=== PATIENT | female | born 1990 | race Caucasian/White ===

== ENCOUNTER 2017-10-19 01:52 | Emergency (ER) | payer MEDICAID ==
[2017-10-19 02:35] LABS: BASOPHILS 0.3 % (0-2); EOSINOPHILS 0.6 % (0-7); HEMATOCRIT 27.9 % (36.0-48.0); HEMOGLOBIN 9.3 g/dL (12-16); IMMATURE GRANULOCYTES 1.9 % (0-5); LYMPHOCYTES 26.5 % (15-50); MCH 30.1 pg (26.0-34.0); MCHC 33.3 g/dL (31.0-37.0); MCV 90.3 fL (80.0-100.0); MEAN PLATELET VOLUME 8.6 fL (7.4-10.4); NEUTROPHILS 61.7 % (40-80); PLATELET COUNT 260 10x3/uL (130-400); RBC 3.09 10x6/uL (4.00-5.40); RDW 14.1 % (11.5-14.5); WBC 10.2 10x3/uL (4.8-10.8)
== END 2017-10-19 02:53 | disposition home or self-care (01) ==
LOC: D.ER 01:52
PROVIDERS: Emergency Medicine
DX: Z86.59 Personal history of other mental and behavioral disorders (principal); F17.200 Nicotine dependence, unspecified, uncomplicated

== ENCOUNTER → 2017-11-15 09:30 | Outpatient (CLI) | payer MEDICAID ==
[2017-11-15 10:34] LABS: UDS - AMPHET NEGATIVE QUAL (NEGATIVE); UDS - BARB NEGATIVE QUAL (NEGATIVE); UDS - BENZO NEGATIVE QUAL (NEGATIVE); UDS - COCAINE NEGATIVE QUAL (NEGATIVE); UDS - OPIATE NEGATIVE QUAL (NEGATIVE); UDS - PCP NEGATIVE QUAL (NEGATIVE); UDS - THC POSITIVE QUAL (NEGATIVE)
[2017-11-15 10:42] LABS: APPEARANCE CLOUDY (CLEAR); BILIRUBIN NEGATIVE (NEGATIVE); COLOR YELLOW (YELLOW); GLUCOSE NEGATIVE (NEGATIVE); KETONE NEGATIVE (NEGATIVE); NITRITE NEGATIVE (NEGATIVE); PROTEIN 1+ mg/dL (NEGATIVE); SPECIFIC GRAVITY 1.005 (1.005-1.020); UROBILINOGEN NORMAL (NORMAL); WHITE CELLS - URINE 0-5 /hpf (0-5)
[2017-11-15 10:43] LABS: BACTERIA MODERATE /hpf (NONE SEEN); MUCUS <1+ /lpf (NONE SEEN)
== END | disposition home or self-care (01) ==
LOC: D.LDO 09:30
PROVIDERS: Obstetrics & Gynecology
DX: O21.9 Vomiting of pregnancy, unspecified (principal); Z3A.00 Weeks of gestation of pregnancy not specified

== ENCOUNTER 2018-01-29 11:08 | Inpatient (IN) | payer MEDICAID ==
[~2018-01-29] VITALS: Ht 162.6 cm; Wt 70.3 kg
[2018-01-29 11:59] LABS: UDS - AMPHET NEGATIVE QUAL (NEGATIVE); UDS - BARB NEGATIVE QUAL (NEGATIVE); UDS - BENZO NEGATIVE QUAL (NEGATIVE); UDS - COCAINE NEGATIVE QUAL (NEGATIVE); UDS - OPIATE NEGATIVE QUAL (NEGATIVE); UDS - PCP NEGATIVE QUAL (NEGATIVE); UDS - THC NEGATIVE QUAL (NEGATIVE)
[2018-01-29 12:16] LABS: APPEARANCE SL CLDY (CLEAR); BILIRUBIN NEGATIVE (NEGATIVE); COLOR DK YELLOW (YELLOW); GLUCOSE NEGATIVE (NEGATIVE); KETONE NEGATIVE (NEGATIVE); NITRITE NEGATIVE (NEGATIVE); PROTEIN 1+ mg/dL (NEGATIVE)
[2018-01-29 12:19] LABS: WHITE CELLS - URINE 25-50 /hpf (0-5)
[2018-01-29 12:20] LABS: BACTERIA MODERATE /hpf (NONE SEEN); EPITHELIAL CELLS 0-5 /hpf (0-5); MUCUS <1+ /lpf (NONE SEEN)
[2018-01-29 14:01] LABS: HEMATOCRIT 22.8 % (36.0-48.0); MCH 25.7 pg (26.0-34.0); MCV 80.3 fL (80.0-100.0); MEAN PLATELET VOLUME 10.5 fL (7.4-10.4); RBC 2.84 10x6/uL (4.00-5.40); RDW 15.3 % (11.5-14.5); WBC 13.8 10x3/uL (4.8-10.8)
[2018-01-29 14:30] LABS: HEMOGLOBIN 7.3 g/dL (12-16)
[2018-01-29 16:52] VITALS: BP 111/84; Ht 162.6 cm; Wt 70.3 kg
[2018-01-29 19:30] VITALS: BP 161/91
[2018-01-29 21:35] LABS: BASOPHILS 0.1 % (0-2); EOSINOPHILS 0.1 % (0-7); HEMATOCRIT 27.1 % (36.0-48.0); HEMOGLOBIN 8.7 g/dL (12-16); IMMATURE GRANULOCYTES 0.6 % (0-5); LYMPHOCYTES 6.9 % (15-50); MCH 25.7 pg (26.0-34.0); MCHC 32.1 g/dL (31.0-37.0); MCV 80.2 fL (80.0-100.0); MEAN PLATELET VOLUME 10.6 fL (7.4-10.4); NEUTROPHILS 83.3 % (40-80); PLATELET COUNT 149 10x3/uL (130-400); RBC 3.38 10x6/uL (4.00-5.40); RDW 15.2 % (11.5-14.5); WBC 18.5 10x3/uL (4.8-10.8)
[2018-01-29 21:48] VITALS: BP 148/78
[2018-01-29 22:15] VITALS: BP 132/76
[2018-01-30 06:51] LABS: BASOPHILS 0.1 % (0-2); EOSINOPHILS 0 % (0-7); HEMATOCRIT 24.8 % (36.0-48.0); IMMATURE GRANULOCYTES 0.6 % (0-5); LYMPHOCYTES 12.3 % (15-50); MCH 25.6 pg (26.0-34.0); MCHC 32.3 g/dL (31.0-37.0); MCV 79.5 fL (80.0-100.0); MEAN PLATELET VOLUME 10.9 fL (7.4-10.4); MONOCYTES 7.7 % (2-11); NEUTROPHILS 79.3 % (40-80); PLATELET COUNT 139 10x3/uL (130-400); RBC 3.12 10x6/uL (4.00-5.40); RDW 15.4 % (11.5-14.5); WBC 18.5 10x3/uL (4.8-10.8)
[2018-01-30 07:15] VITALS: BP 140/88
[2018-01-30 07:30] LABS: RAPID PLASMA REAGIN Non Reactive (Non Reactive)
[2018-01-30 20:00] VITALS: BP 129/89
[2018-01-31 07:35] VITALS: BP 129/82
[2018-01-31 13:20] VITALS: BP 121/70
== END 2018-01-31 18:45 | disposition home or self-care (01) | DRG 774 ==
LOC: D.LDO 11:08 → D.LD 12:09 → D.WS 12:09
PROVIDERS: Obstetrics & Gynecology
PROC: 10907ZC Drainage of Amniotic Fluid, Therapeutic from Products of Conception, Via Natural or Artificial Opening (ICD-10-PCS; principal; 2018-01-29)
PROC: 10E0XZZ Delivery of Products of Conception, External Approach (ICD-10-PCS; 2018-01-29)
DX: O66.0 Obstructed labor due to shoulder dystocia (principal); O72.1 Other immediate postpartum hemorrhage; Z3A.39 39 weeks gestation of pregnancy; Z37.0 Single live birth; O77.0 Labor and delivery complicated by meconium in amniotic fluid; O99.02 Anemia complicating childbirth

== ENCOUNTER 2019-09-07 01:19 | Inpatient (IN) | payer OTHER ==
[~2019-09-07] VITALS: Ht 162.6 cm; Wt 145.6 kg
--- NOTE | ~2019-09-07 | OP ---
PATIENT NAME: NINA SCHMITZ MEDICAL RECORD: [id number] :88 LOCATION:[id number] ADMISSION DATE:09/07/19 SURGEON: ALINA STRICKLAND DO DATE OF OPERATION: 09/07/2019 PREOPERATIVE DIAGNOSIS: Placenta previa, suspected placental abruption. POSTOPERATIVE DIAGNOSIS: Placenta previa, suspected placental abruption, 90% placental abruption. PRIMARY SURGEON: Alina Strickland DO ANESTHESIA: General ET tube. PROCEDURE: Primary low transverse section via Pfannenstiel incision. FINDINGS: Female , weight 5 pounds 5 ounces, Apgars 2, 7 and 8, 90% placental abruption noted. Uterus white. Normal appearing fallopian tubes and ovaries. SPECIMENS: Placenta and cord. ESTIMATED BLOOD LOSS: 800 cc. IV FLUIDS: 5 units PRBCs, 1 unit FFP, 2 liters IV fluids. URINE OUTPUT: 550 cc clear urine. COMPLICATIONS: The patient with severe symptomatic anemia given multiple units of PRBCs and 1 unit of FFP in the OR with stabilization of vital signs. Uterine atony, 20 extra units of Pitocin added to the IV fluids and 0.25 mg Hemabate given IM with improvement in uterine tone. PROCEDURE IN DETAIL: The risks, benefits, alternatives, and indications of the procedure were discussed with the patient. She voiced understanding of the procedure and signed the consent. The patient understood this was an emergent procedure and needed to occur as soon as possible. She was taken to OR where general anesthesia was administered and found to be adequate. Due to need for emergent delivery, she was placed in the dorsal supine position with a leftward tilt. She was prepped and draped in the normal sterile fashion. A Pfannenstiel skin incision was made with the scalpel and carried down to the underlying layer of the fascia. The fascia was incised in the midline and extended laterally. The fascia and rectus muscle was using blunt dissection. The peritoneum was identified and noted to be free of adherent bowel and entered bluntly. The peritoneum was further with gentle traction. The bladder blade was inserted. The uterus was incised in a transverse fashion in lower uterine segment. The incision was extended with cephalad caudad traction. The infant was delivered without difficulty. Mouth and nose were suctioned. Cord was clamped and cut and the infant was handed off to awaiting pediatricians. The placenta was manually removed. A 90% placental abruption was noted at the time. The uterus was exteriorized and moist lap was used to assure complete removal of placenta membranes. The hysterotomy was closed with 0 Vicryl in a running locked fashion with good hemostasis noted. There was uterine atony and extra Pitocin was added to the IV fluids as well as 0.25 mg of Hemabate given IM with good return of uterine tone. The posterior cul-de-sac OPERATIVE REPORT [id number] NINA SCHMITZ was irrigated with warm sterile water. Uterus was returned back to the abdominal cavity. A moist laparotomy sponge was used to assure complete removal of blood clots and fluid from the abdominal cavity. The hysterotomy was reinspected and noted to be hemostatic. Rectus muscle was closed with 2-0 Monocryl in a running fashion with good hemostasis. The fascial incision was closed with 0 Vicryl in a running fashion with good hemostasis. The skin was closed in a subcuticular fashion with 3-0 Monocryl, Steri-Strips and a pressure dressing. All needle, lap, sponge, and instrument counts were correct times 2. The patient tolerated the procedure well and she was stable at the time that we brought her to the recovery room. TRANSINT:[id number] Voice Confirmation ID: [id number] DOCUMENT ID: [id number] ALINA STRICKLAND DO CC: [id number] DICTATION DATE: 09/13/19 [address] MAIL DRIVER: 09/13/19 1156 DIS IN 09/11/19 [facility] [address] [id number]
[2019-09-07 01:31] LABS: HEMATOCRIT 13.9 % (36.0-48.0); HEMOGLOBIN 4.2 g/dL (12-16); MCH 25.8 pg (26.0-34.0); MCHC 30.2 g/dL (31.0-37.0); MCV 85.3 fL (80.0-100.0); MEAN PLATELET VOLUME 9.1 fL (7.4-10.4); RBC 1.63 10x6/uL (4.00-5.40); RDW 15.5 % (11.5-14.5); WBC 12.2 10x3/uL (4.8-10.8)
--- NOTE | 2019-09-07 02:12 | NUR ---
BABY @ 0146 GIRL PLACENTA @ 0145
[2019-09-07 02:49] LABS: UDS - AMPHET POSITIVE QUAL (NEGATIVE); UDS - BARB NEGATIVE QUAL (NEGATIVE); UDS - BENZO NEGATIVE QUAL (NEGATIVE); UDS - COCAINE NEGATIVE QUAL (NEGATIVE); UDS - OPIATE NEGATIVE QUAL (NEGATIVE); UDS - PCP NEGATIVE QUAL (NEGATIVE); UDS - THC NEGATIVE QUAL (NEGATIVE)
[2019-09-07 04:09] VITALS: BP 143/103
--- NOTE | 2019-09-07 04:10 | NUR ---
PT REC'D FROM SURGERY AT THIS TIME. FUNDUS FIRM AND U/1 WITH MODERATE LOCHIA NOTED. PERICARE PROVIDED AT THIS TIME. 500 ML OF CLEAR YELLOW URINE EMPTIED FROM GAUTAM CATH AT THIS TIME. NO ACUTE DISTRESS NOTED AT THIS TIME. SEE FLOWSHEET FOR ADDITIONAL CHARTING. Harman SAINI RN
--- NOTE | 2019-09-07 04:27 | NUR ---
0311 FUDAL HEIGHT 2 FINGERS BELOW UMBILICUS, MIDLINE, AND FIRM
--- NOTE | 2019-09-07 04:28 | NUR ---
0400 HOUSTON PAD MODERATE SEROSANGENOUS DRAINAGE. REPLACE WITH NEW PERIPAD. FUNDAL HEIGHT 1 FINGER BELOW UMBILICUS, MIDLINE AND FIRM
[2019-09-07 04:45] LABS: BASOPHILS 0.2 % (0-2); EOSINOPHILS 0 % (0-7); IMMATURE GRANULOCYTES 3.7 % (0-5); LYMPHOCYTES 15.9 % (15-50); MCH 28.8 pg (26.0-34.0); MCHC 34.2 g/dL (31.0-37.0); MCV 84.4 fL (80.0-100.0); MEAN PLATELET VOLUME 9.5 fL (7.4-10.4); MONOCYTES 2.1 % (2-11); NEUTROPHILS 78.1 % (40-80); RDW 13.9 % (11.5-14.5)
[2019-09-07 04:47] LABS: HEMOGLOBIN 9.4 g/dL (12-16); RBC 3.26 10x6/uL (4.00-5.40); WBC 8.9 10x3/uL (4.8-10.8)
[2019-09-07 04:48] LABS: HEMATOCRIT 27.5 % (36.0-48.0); PLATELET COUNT 66 10x3/uL (130-400)
--- NOTE | 2019-09-07 04:48 | NUR ---
DR STRICKLAND NOTIFIED REGARDING LABS
[2019-09-07 04:49] LABS: PLATELET ESTIMATE DECREASED
[2019-09-07 04:52] LABS: CALC OSMOLALITY 292 mosm/kg (275-300); CALCIUM 8.4 mg/dL (8.5-10.1); CARBON DIOXIDE 29.9 mmol/L (21.0-32.0); CHLORIDE - SERUM 110 mmol/L (98-107); CREATININE - SERUM 0.8 mg/dL (0.6-1.3); GLUCOSE 150 mg/dL (74-106); SODIUM 146 mmol/L (136-145); UREA NITROGEN 11 mg/dL (7-18); eGFR NON AFRICAN AMERICAN 89 mL/min (90-120)
[2019-09-07 04:53] LABS: APTT 23.1 SECONDS (22.8-39.4); INR 1.05 (0.85-1.17); PROTIME 13.7 SECONDS (11.6-15.0)
[2019-09-07 05:23] LABS: PLATELET MORPHOLOGY PLT CLUMPS PRESENT
[2019-09-07 05:53] VITALS: BP 143/103
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
--- NOTE | 2019-09-07 06:19 | NUR ---
LATE ENTRY: BP CUFF NOTED TO BE OFF, WHEN GETTING READY TO APPLY BP CUFF, TURNIQUET FROM LAB DRAW NOTED TO BE ON, TURNIQUET REMOVED, INFORMED JAYNE SAINI RN
--- NOTE | 2019-09-07 07:30 | NUR ---
AM ROUNDS COMPLETED, VITAL SIGNS TAKEN AND WNL. REVIEWED PLAN OF CARE, PT STATES UNDERSTANDING, WILL REINFORCE PRN. CALL LIGHT IN EASY REACH, CONTINUE TO MONITOR.
--- NOTE | 2019-09-07 08:35 | NUR ---
PT COMPLIANT WITH ASSESSMENT, TURNS SELF SIDE TO SIDE IN BED, ADDITIONAL PILLOW PROVIDED FOR PT COMFORT AND PROPPED TO PT BACK, TOLERATING PO INTAKE, LUNGS CTAB, HEART RRR, ABD SOFT AND MILDLY TENDER WITH FUNDAL CHECK, FUNDUS FIRM AT U/1 AND MIDLINE. BOWEL SOUNDS PRESENT BUT HYPOACTIVE TO ALL QUADRANTS, PAYAN FREELY, CATHETER IN PLACE WITH CONCENTRATED YELLOW URINE IN BAG TO GRAVITY DRAINAGE, NEG VI'S SIGN B LE. SCDS IN PLACE AND FUNCTIONING. CONVERTED LEFT A/C PIV TO SALINE LOCK AND MOVED PIV TO LEFT HAND TO MINIMIZE IVAC ALARMS WITH PT BENDING OF ARM. PT TOLERATES WELL. BREAKFAST TRAY ON BST ADJACENT TO BED WITHIN PT REACH, CALL LIGHT IN EASY REACH OF PT. WILL MONITOR.
[2019-09-07 09:07] LABS: BASOPHILS 0.1 % (0-2); EOSINOPHILS 0 % (0-7); HEMATOCRIT 26.8 % (36.0-48.0); HEMOGLOBIN 9.3 g/dL (12-16); IMMATURE GRANULOCYTES 0.6 % (0-5); LYMPHOCYTES 11.5 % (15-50); MCH 29.1 pg (26.0-34.0); MCHC 34.7 g/dL (31.0-37.0); MCV 83.8 fL (80.0-100.0); MEAN PLATELET VOLUME 9.4 fL (7.4-10.4); MONOCYTES 8.9 % (2-11); NEUTROPHILS 78.9 % (40-80); RDW 13.9 % (11.5-14.5)
[2019-09-07 09:09] LABS: PLATELET COUNT 120 10x3/uL (130-400)
[2019-09-07 09:15] LABS: CALC OSMOLALITY 284 mosm/kg (275-300); CALCIUM 8.4 mg/dL (8.5-10.1); CHLORIDE - SERUM 106 mmol/L (98-107); CREATININE - SERUM 0.9 mg/dL (0.6-1.3); GLUCOSE 160 mg/dL (74-106); POTASSIUM - SERUM 3.8 mmol/L (3.5-5.1); SODIUM 142 mmol/L (136-145); UREA NITROGEN 10 mg/dL (7-18); eGFR NON AFRICAN AMERICAN 77 mL/min (90-120)
[2019-09-07 09:17] LABS: INR 0.95 (0.85-1.17); PROTIME 12.7 SECONDS (11.6-15.0)
--- NOTE | 2019-09-07 09:21 | NUR ---
spoke with dr esteves via telephone and reviewed am assessment per this rn and most recent cbc results, states to dc all q4 hour labs including bmp, cbc, fibrinogen. cbc in am. notify of any changes in condition, states will see pt around noon today.
--- NOTE | 2019-09-07 09:25 | NUR ---
provided pt two more cups of ice water per her request. states "i'm so thirsty," explained rationale behind that, harrison cath with approximately 400ml urine noted in collection bag set to gravity. will monitor.
[2019-09-07 10:46] VITALS: BP 106/64
--- NOTE | 2019-09-07 10:49 | NUR ---
vss, afebrile, resp even and unlabored, some mild nausea with activity, changing positions for linen change and pericare, now resolved. room temp adjusted per pt request. cup of ice water provided. will monitor.
--- NOTE | 2019-09-07 11:30 | NUR ---
ON ROUNDS NOTED NO URINE OUTPUT NOTED SINCE EMPTIED, NOTIFIED DR STRICKLAND WHO IS AT NURSE'S STATION, VERBAL ORDER RECEIVED AND RELAYED TO Ifeoma SHORT RN WHO STATES SHE WILL COMPLETE ORDERS AND DO NAIL GALVANIZER.
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
--- NOTE | 2019-09-07 11:56 | NUR ---
250 ML LR BOLUS COMPLETED. RATE DECREASED TO 125 MLS/HR.
--- NOTE | 2019-09-07 11:56 | NUR ---
C/O ABD AND INCISIONAL DISCOMFORT. 4 MG IVP MORPHINE GIVEN AND 4 MG IVP ZOFRAN GIVEN PER ORDER AND PT REQUEST. DENIES ADDITIONAL NEEDS. SIGNIFICANT OTHER REMAINS AT BEDSIDE, SUPPORTIVE AND ATTENTIVE TO PT NEEDS. BED IN LOW POSITION WITH SRUP X2. CALL LIGHT AND PHONE WITHIN REACH. WILL CONTINUE TO MONITOR.
--- NOTE | 2019-09-07 12:23 | NUR ---
PT LAYING ON RIGHT SIDE, RESTING WITH EYES CLOSED. RESP REG AND UNLABORED, NO S/S OF DISTRESS NOTED. PT NOT DISTURBED TO ALLOW FOR REST. BED IN LOW POSITION WITH SRUP X2. CALL LIGHT AND PHONE WITHIN REACH. SIGNIFICANT OTHER REMAINS AT BEDSIDE, SUPPORTIVE AND ATTENTIVE TO PT.
--- NOTE | 2019-09-07 12:41 | NUR ---
DR STRICKLAND HERE, INFORMED BLOOD TYPE IS 0 POSITIVE. PT IS RH NEGATIVE. BLEED SCREEN ORDERED.
--- NOTE | 2019-09-07 13:10 | NUR ---
50 ml urine output noted since LR bolus given per l. norma valentino. nad noted. pt resting in right lateral position with significant other at bs. will monitor.
[2019-09-07 14:30] VITALS: BP 112/64
--- NOTE | 2019-09-07 14:33 | NUR ---
vss, afebrile, 25-30ml noted in chamber since last checked, repositioned pt, noted additional concentrated urine in tubing. toradol IV given per pt request for pain rated 4/10. lying in right lateral position, swelling noted to right forearm, no redness or streaking or warmth, offered warm compress to site, pt refused. no other needs voiced at this time. will monitor.
--- NOTE | 2019-09-07 15:28 | NUR ---
pt rates pain 3-4 on numeric pain scale. nad noted.
--- NOTE | 2019-09-07 16:02 | NUR ---
1000mg bag lr hung and infusing, harrison with decreased output noted. will notify .
--- NOTE | 2019-09-07 16:08 | NUR ---
DR STRICKLAND NOTIFIED OF PT URINE OUTPUT OF 75ML IN PAST THREE HOURS. NEW VERBAL ORDER RECEIVED FOR 1L BOLUS OVER ONE HOUR NOW. INFORMATION RELAYED TO PT, LR BOLUS NOW INFUSING PER MD ORDERS TO LEFT HAND SITE. SINCE TURNING PT ON LEFT SIDE, RIGHT ARM PERIPHERAL EDEMA DECREASED TO 1+--MD AWARE. WILL MONITOR FOR CHANGE.
--- NOTE | 2019-09-07 16:35 | NUR ---
rounds completed, pt sitting upright in bed, right arm edema decreased but still present. encouraged pt to not lie on affected side, pt states understanding after rationale explained. call light in easy reach.
--- NOTE | 2019-09-07 17:45 | NUR ---
rounds completed, nad noted. resp even and unlabored. ivf bolus completed and rate decreased to 125ml/hr to ivac pump left hand site. no increase in urine output at this time. dr esteves made aware on recent phone call to unit.
--- NOTE | 2019-09-07 18:26 | NUR ---
pt requesting pain med for pain rated 8/10 on numeric pain scale, morphine 4mg sivp given per md orders, tolerating clear liquids, denies other needs at this time.
[2019-09-07 19:40] VITALS: BP 120/74
--- NOTE | 2019-09-07 19:40 | NUR ---
ASSESSMENT PER FLOW SHEET, VS OBTAINED, IV IN LEFT HAND INTACT WITH NO REDNESS OR EDEMA INFUSING VIA PUMP LR AT 125 ML/HR, SALINE LOCK IN LEFT AC INTACT WITH NO REDNESS OR EDEMA, FF,ML, U/1, LITE BLEEDING NOTED WITH NO CLOTS, HOUSTON CARE DONE WITH WET WARM WASH CLOTHS, HOUSTON PAD CHANGED, CLEAN GOWN APPLIED, BIKINI INC WITH DRIED VAG BLOOD NOTED ON BOTTOM OF DRESSING, GAUTAM CATH INTACT DRAINING DARK, CONCENTRATED URINE, EMPTIED 200 MLS FROM GAUTAM, WILL CONTINUE TO MONITOR, ENC PT TO DRINK PLENTY OF FLUIDS, PT VERBALIZES UNDERSTANDING, PT RATES PAIN 12/03, INFORMED PT THAT I WILL ADM PAIN MED WHEN DUE, PT VERBALIZES UNDERSTANDING, SCD'S ON AND WORKING PROPERLY, DENIES NEEDS AT THIS TIME, FOB ASLEEP AT BEDSIDE
--- NOTE | 2019-09-07 20:20 | NUR ---
DR STRICKLAND CALLS THE UNIT REQUEST UPDATE REPORT ON PT. URINE OUTPUT X LAST 3.5HRS REPORTED AND NOTIFIED OF IRREGULAR HEART RATE AUDIBLE. PT TO BE PLACED ON ECG LINES ON UNIT.
--- NOTE | 2019-09-07 21:33 | NUR ---
PT'S MOM AT DESK, REPORTS SCD'S NOT WORKING, THIS RN TO ROOM, PT VISITING WITH FAMILY AND FRIENDS AT THIS TIME, SCD'S REMOVED AND REPLACED, SCD'S WORKING PROPERLY, PT DENIES FURTHER NEEDS AT THIS TIME
--- NOTE | 2019-09-07 22:25 | NUR ---
ADM TORADOL DILUTED IN 5MS OF NS, SIVP, PER MD ORDERS, SEE EMAR, ICE PACK PLACED TO RIGHT ARM AT THIS TIME, PT INQUIRES ABOUT PAIN MED, WILL ADM MORPHINE, SCD'S CONTINUE ON AND WORKING PROPERLY, EMPTIED 100 MLS OF DARK, CONCENTRATED URINE FROM GAUTAM BAG, WILL NOTIFY DR STRICKLAND AND CONTINUE TO MONITOR, FOB AT BEDSIDE, REST OF FAMILY LEAVES AT THIS TIME
--- NOTE | 2019-09-07 22:37 | NUR ---
DR STRICKLAND NOTIFIED, REPORT OF OUTPUT AND ICE PACK TO RIGHT ARM, DR STRICKLAND REPORTS THAT 30MLS/HR IS ADEQUATE
--- NOTE | 2019-09-07 22:45 | NUR ---
[facility] TO ROOM AT THIS TIME
[2019-09-07 23:08] VITALS: BP 118/80
--- NOTE | 2019-09-07 23:08 | NUR ---
[facility] OUT OF ROOM, VS OBTAINED, ADM MORPHINE DILUTED IN 5MLS OF NS, SIVP PER MD ORDERS, SEE EMAR, PT ENC AGAIN TO DRINK PLENTY OF FLUIDS, PT VERBALIZES UNDERSTANDING, DENIES FURTHER NEEDS, FOB ASLEEP ON COUCH
--- NOTE | 2019-09-08 01:39 | NUR ---
PT RESTING WITH EYES CLOSED, RESP QUIET, NO DISTRESS NOTED, LEFT UNDISTURBED AT THIS TIME, SCD'S CONTINUE ON AND WORKING PROPERLY, BED IN LOW POSITION, SIDE RAILS X 2, CALL LIGHT IN REACH, FOB ASLEEP ON COUCH
[2019-09-08 03:34] VITALS: BP 122/80
--- NOTE | 2019-09-08 03:34 | NUR ---
PT AROUSES TO OPENING OF DOOR, VS OBTAINED, ADM TORADOL, DILUTED IN 5MLS OF NS, SIVP, AND MOPRHINE, DILUTED IN 5MLS OF NS, SIVP, PER MD ORDERS, SEE EMAR, I&O'S COLLECTED, LITE BLEEDING NOTED WITH NO CLOTS, HOUSTON PAD CHANGED, RIGHT ARM STILL SWOLLEN, PT INST TO KEEP ARM ELEVATED, FRESH ICE PACK TO RIGHT ARM, WHITE ECG LEAD NOTED TO BE OFF, LEAD REPLACED, WILL CONTINUE TO MONITOR, SCD'S ON AND WORKING PROPERLY, PT REQUESTED AND SERVED FRESH H20, PT DENIES FURTHER NEEDS, BED IN LOW POSITION, SIDE RAILS X 2, CALL LIGHT IN REACH, BLANKET PROVIDED TO FOB
--- NOTE | 2019-09-08 04:16 | NUR ---
DR STRICKLAND NOTIFIED, REPORT OF RIGHT ARM, IRREGULAR HEART RATE, AND URINE OUTPUT, ORDERS RECEIVED FOR STAT RIGHT ARM DOPPLER AND EKG, AND A CARDIAC CONS TODAY
--- NOTE | 2019-09-08 04:30 | NUR ---
RADIOLOGY NOTIFIED OF STAT DOPPLER, I WAS INFORMED THAT THEY HAD TO CALL IN THE US TECH
--- NOTE | 2019-09-08 04:40 | NUR ---
NOTIFIED LISSY GONZALEZ RNFLORIST MANAGER OF STAT EKG, SHE WILL SEND SOMEONE TO DO THE EKG
--- NOTE | 2019-09-08 05:20 | NUR ---
US TO ROOM FOR DOPPLER
--- NOTE | 2019-09-08 05:45 | NUR ---
US OUT OF ROOM, THIS RN AND SANTOSH DIANE FROM MED 2 TO ROOM FOR EKG, PT RATES PAIN 10/03, DENIES NEEDS
--- NOTE | 2019-09-08 06:15 | NUR ---
DR STRICKLAND NOTIFIED ABOUT EKG AND DOPPLER, ORDERS TO CONTINUE WITH CARDIO CONS AND NEW ORDER FOR HEMATOLOGY CONSULT
--- NOTE | 2019-09-08 06:47 | NUR ---
DR STRICKLAND CALLS UNIT, RECEIVED ORDERS FOR A CMP AND TO CALL HER WHEN LAB RESULTS COME BACK ON CBC AND CMP
--- NOTE | 2019-09-08 06:51 | NUR ---
SPOKE TO CASEY IN LAB REGARDING CMP ORDER
[2019-09-08 06:55] LABS: BASOPHILS 0 % (0-2); EOSINOPHILS 0.1 % (0-7); HEMATOCRIT 24.2 % (36.0-48.0); HEMOGLOBIN 8.4 g/dL (12-16); IMMATURE GRANULOCYTES 0.5 % (0-5); LYMPHOCYTES 12.8 % (15-50); MCHC 34.7 g/dL (31.0-37.0); MCV 83.4 fL (80.0-100.0); MEAN PLATELET VOLUME 9.5 fL (7.4-10.4); NEUTROPHILS 80.6 % (40-80); PLATELET COUNT 133 10x3/uL (130-400); RDW 14.7 % (11.5-14.5)
--- NOTE | 2019-09-08 07:00 | NUR ---
SHIFT REPORT TO CHERIE HERNANDEZ RN
[2019-09-08 08:16] LABS: ALBUMIN 1.5 g/dL (3.4-5.0); ALKALINE PHOSPHATASE 74 U/L (30-120); ALT (SGPT) 23 U/L (10-68); BILIRUBIN - TOTAL 0.29 mg/dL (0.2-1.3); CALCIUM 7.5 mg/dL (8.5-10.1); CARBON DIOXIDE 27.7 mmol/L (21.0-32.0); CHLORIDE - SERUM 105 mmol/L (98-107); PROTEIN - SERUM 3.8 g/dL (6.4-8.2); SODIUM 138 mmol/L (136-145)
[2019-09-08 08:17] LABS: CALC OSMOLALITY 272 mosm/kg (275-300); CREATININE - SERUM 0.6 mg/dL (0.6-1.3); GLUCOSE 78 mg/dL (74-106); POTASSIUM - SERUM 4.6 mmol/L (3.5-5.1); UREA NITROGEN 7 mg/dL (7-18); eGFR NON AFRICAN AMERICAN > 90 mL/min (90-120)
--- NOTE | 2019-09-08 08:25 | NUR ---
dr. cortez paged, ), returns call, report given to , dr. cortez states "ok, it will be a little bit before i get down there".
[2019-09-08 09:02] VITALS: BP 121/82
--- NOTE | 2019-09-08 09:25 | NUR ---
dr. allen paged for hematology consult, [facility] ([phone]). dr. allen calls to unit, and speaks with dr. allen.
--- NOTE | 2019-09-08 09:40 | NUR ---
LAB CALLED AND SAID THEY TALKED TO THEIR GUIDE CRUISE REFERRING TO PT + BLOOD SCREEN PER NO BB SPECIALIST WE SHOULD GIVE TWO VIAL RHOGAM AND MORE IF NEEDED ONCE THE KB RESULTS HAVE RETURNED. DR STRICKLAND ON L&D AND NOTIFIED OF RECOMMENDATIONS OF GUIDE CRUISE ABOVE.
--- NOTE | 2019-09-08 09:57 | NUR ---
dr. cortez in room speaking with pt, examines pt. dr. cortez explains to pt he will obtain an ultrasound in the am, telling pt everythin sounds ok to him.
--- NOTE | 2019-09-08 10:00 | NUR ---
dr. esteves at [facility], verbal order received to sl iv, d/c harrison cath, advance diet to regular. to room, pt states "my belly is hurting since she took the bandage off". incision noted without redness or swelling, steristrips in place, c/d/i, except for area on lower right abdomen just below steristrips is an area where the bandage/tape was removed the size of a qtip tip, bright red blood, not draining. harrison cath noted to have 500 cc's dark yellow urine, dc'd intact, pericare done with warm wet washcloths, chux changed, and peripanties/pad on. iv to left forearm sl, no redness or swelling noted to hand/arm. sl in left ac remains in place for now. pt then stood, to side of bed, and weight obtained, 170#. pt back to bed. sup x2, call light and phone within reach. pt requests more pain medication, explained to pt toradol is available. mug of ice water served. sig other remains sleeping on bedside sofa.
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
--- NOTE | 2019-09-08 11:44 | NUR ---
upon entering pt's room for toradol adm, pt is lying on her right side, resting quietly. mhr noted to be 130's, 140's, mecg lead on left upper chest loose, reconnected. mhr now 60's and 70's. pt denies sob, dizziness, n/v or chest pain or difficulty breathing.
[2019-09-08 11:47] VITALS: BP 124/86
--- NOTE | 2019-09-08 12:23 | NUR ---
dr. allen on unit, reviews chart. to room to speak with pt.
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
--- NOTE | 2019-09-08 15:00 | NUR ---
pt up to br per self, voids per self without difficulty, one silver dollar sized blood clot noted, unmeasured void. peripanties/pads provided. pericare done with warm water bottle per self. clean gown on. pt then transferred ambulatory to room 1273 in stable condition, to bed, oriented to room. call light and phone within reach. pt denies all other needs at this time. see emar for all meds adm by this rn.
--- NOTE | 2019-09-08 19:02 | NUR ---
REPORT GIVEN TO 7 P SHIFT.
[2019-09-08 19:30] VITALS: BP 129/58
--- NOTE | 2019-09-08 22:30 | NUR ---
I HAVE NOT SEEN PT WALKING IN THE HALLS GREATLY ENCOURAGED FROM NURSE EARLIER IN THE SHIFT. SHE IS TURNING FROM SIDE TO SIDE WELL. BOYFRIEND STILL ON THE COUCH SLEEPING.
[2019-09-09] VITALS: BP 121/78
--- NOTE | 2019-09-09 00:05 | NUR ---
PT SLEEPING BUT WAKED UP FOR VS. SHE HAS NO C/O OR CONCERNS. PT STATES HER BLEEDING IS SCANT.
--- NOTE | 2019-09-09 02:10 | NUR ---
PT RESTING QUIETLY. NO C/P OR CONCERNS.
[2019-09-09 04:00] VITALS: BP 118/82
--- NOTE | 2019-09-09 05:54 | NUR ---
PT IS RESTING WITH HER EYES CLOSED BREATHING IS EVEN. NO C/O
--- NOTE | 2019-09-09 07:34 | NUR ---
BLOOD BANK CALLED AND VERIFIED WHEN KB RESULTS WOULD BE RECEIVED, PER NO WOULD BE SENT OUT TODAY, EXPECT RESULTS IN 2-3 DAYS.
--- NOTE | 2019-09-09 08:15 | NUR ---
DR STRICKLAND ROUNDS ON PATIENT, UPON MD LEAVING ROOM PT COMES OUT IN TO [address] CRYING AND ASK THAT MD COME BACK TO ROOM FOR A MOMENT.
--- NOTE | 2019-09-09 08:30 | NUR ---
NEW ORDERS FOR BENADRYL 50MG X 1 NOW TO AID WITH SLEEP. PT IS VERBALLY UPSET OVER NOT BEING ABLE TO WALK OUTSIDE TO SMOKE. DR STRICKLAND BACK TO ROOM TO TALK WITH PT AND TRY TO CALM HER DOWN AND REST.
[2019-09-09 08:45] VITALS: BP 132/90
--- NOTE | 2019-09-09 08:45 | NUR ---
AM ASSESSMENT COMPLETED. PT IS MOVING AROUND CONTINUOUSLY, SHE REMOVES SCD, STATING THAT SHE CAN'T HANDLE THOSE ANY LONGER. BIKINI INCISION CLEAN AND DRY WITH STERI STRIPS IN PLACE, FUNDUS FIRM AT U/1 WITH LIGHT BLEEDING NOTED TO HOUSTON PAD. SALINE LOCK TO LEFT HAND PATENT AND FLUSHED EASILY WITH 5ML NS. PT RIGHT ARM IS STILL SWOLLEN, DENIES PAIN WITH TOUCH AT THIS TIME, SHE IS MOVING THIS ARM WITH NO SIGNS OF DISCOMFORT. ENCOURAGED PT TO TRY AND REST/SLEEP TO PROMOTE HEALING. SIG OTHER IS SLEEPING ON COUCH AT BEDSIDE. SIDE RAILS UP X 2 WITH CALL LIGHT IN REACH.
--- NOTE | 2019-09-09 09:50 | NUR ---
SIG OTHER TO UNIT DESK ASKING IF PT COULD WALK TO [facility] TO EAT BREAKFAST. EXPLAINED THAT [facility] WAS CLOSED AT THIS TIME AND WOULD NOT REOPEN UNTIL 1100.
--- NOTE | 2019-09-09 10:33 | NUR ---
PT CALLS OUT FOR PAIN MED. THIS RN TO BEDSIDE, UPON ENTERING ROOM PT IS AWAKE AND SITTING UP IN BED ATTEMPTING TO FILL OUT NURSERY PAPERWORK, SHE RATES HER PAIN AT 8/10, MEDS GIVEN SCANNED TO EMAR. LOVENOX 75MG ALSO GIVEN TO LUQ AT THIS TIME. PT UNABLE TO SIT STILL AND HAVING TROUBLE FOCUSING WHEN ASKED ABOUT HER PAIN. SIG OTHER AT BEDSIDE, SIDE RAILS UP X 2 WITH CALL LIGHT IN REACH.
--- NOTE | 2019-09-09 11:03 | NUR ---
2 [facility] CASE WORKERS TO PT BEDSIDE TO SPEAK WITH HER ABOUT AND OTHER CHILDREN.
--- NOTE | 2019-09-09 12:30 | NUR ---
PT CALLS OUT FOR PAIN MED. THIS RN TO ROOM AFTER CHECKING EMAR, PT STATES UNDERSTANDING THAT PAIN MED IS NOT DUE UNTIL 2PM. DENIES ANY OTHER NEEDS AT THIS TIME.
--- NOTE | 2019-09-09 13:45 | NUR ---
[facility] CASE WORKERS AT BEDSIDE TALKING WITH PT AND SIG OTHER ABOUT PLAN OF CARE FOR AND OTHER CHILDREN AND WHAT PT NEEDS TO DO.
--- NOTE | 2019-09-09 15:00 | NUR ---
PT AMB TO UNIT DESK REQUESTING SOX AND PAIN MEDICATION, SHE ALSO ASK IF SHE IS ABLE TO WALK OUTSIDE, SHE IS TOLD NO AND EXPLAINED THE REASON BEHIND THIS. AMB BACK TO ROOM.
[2019-09-09 15:30] LABS: BASOPHILS 0.2 % (0-2); EOSINOPHILS 0.2 % (0-7); HEMATOCRIT 26.8 % (36.0-48.0); HEMOGLOBIN 8.7 g/dL (12-16); IMMATURE GRANULOCYTES 0.8 % (0-5); LYMPHOCYTES 20.4 % (15-50); MCH 28.6 pg (26.0-34.0); MCHC 32.5 g/dL (31.0-37.0); MCV 88.2 fL (80.0-100.0); MONOCYTES 6.9 % (2-11); NEUTROPHILS 71.5 % (40-80); PLATELET COUNT 170 10x3/uL (130-400); RBC 3.04 10x6/uL (4.00-5.40)
--- NOTE | 2019-09-09 15:58 | NUR ---
SALINE LOCK DC'D WITH CATHELON INTACT. PRESSURE BANDAGE TO SITE.
--- NOTE | 2019-09-09 15:58 | NUR ---
DR TAYLOR CONTACTED AND REPORT GIVEN OF PT HIGH POSSIBILITY OF LEAVING AMA AND DR STRICKLAND CONCERN ABOUT TREATMENT FOR DVT. DR TAYLOR GIVES ORDER THAT LOVENOX CAN BE DISCONTINUED AND START ELIQUIS 5MG BID, THIS CAN ALSO BE CALLED TO PT PHARMACY OF CHOICE. PT TO FOLLOW UP WITH DR TAYLOR NEXT WEEK, ALSO DR TAYLOR OK WITH DISCHARGE. DR STRICKLAND NOTIFIED OF THIS.
--- NOTE | 2019-09-09 16:59 | NUR ---
PT REQUEST THAT SCRIPT BE CALLED IN TO [facility] ON [address]. PT SITTING UP EATING REGULAR DIET AT THIS TIME AND DENIES NEEDS. SIDE RAILS UP X 2 WITH CALL LIGHT IN REACH.
--- NOTE | 2019-09-09 17:05 | NUR ---
LICHA RAMAN CALLED IN TO [facility] ON [address]. SPOKE WITH SARAH.
--- NOTE | 2019-09-09 17:25 | NUR ---
DR STRICKLAND PHONED REGARDING PT'S REPORTS OF WANTING SOMETHING FOR SLEEP. ORDER RCVD FOR [facility] PR[facility] SLEEP.
--- NOTE | 2019-09-09 18:30 | NUR ---
PT SITTING UP IN BED. EYES CLOSED. RESP NON-LABORED. PT NOT DISTURBED TO ALLOW FOR REST.
[2019-09-09 19:38] VITALS: BP 123/76
--- NOTE | 2019-09-09 19:38 | NUR ---
PT REC'D IN BED AT THIS TIME. STATES THAT PAIN IS A 9/10. INCISION TO THE ABDOMEN INTACT WITH STERI-STRIPS. INCISION RED WITH REDNESS EXTENDING TO LABIA ON THE RIGHT SIDE. SITE WARM TO THE TOUCH. SMAL LOCHIA NOTED AT THIS TIME. PT AMBULATING IN ROOM. SEE FLOWSHEET FOR FURTHER CHARTING. Harman SAINI RN
--- NOTE | 2019-09-09 19:48 | NUR ---
DR DAVENPORT CALLED AND INFORMED HIM OF INCISION CONDITION. ODERED 1 GRAM OF VANCOMYCIN Q 12 HOURS. Harman SAINI RN
--- NOTE | 2019-09-09 20:00 | NUR ---
MOTRIN AND PERCOCET GIVEN AT THIS TIME. 20 G IV STARTED TO THE LEFT FOREARM X1 ATTEMPT. SALINE LOCK APPLIED AND SITE FLUSHED WITHOUT DIFFICULTY. Harman SAINI RN
--- NOTE | 2019-09-09 20:58 | NUR ---
VANCOMYCIN 1 GRAM, AMBIEN, AND ELIQUIS GIVEN AT THIS TIME. Harman SAINI RN
--- NOTE | 2019-09-09 21:30 | NUR ---
PT UP AND AT DOOR ASKING HOW TO GO THO BATHROOM WITH IV. IV AND POLE STRETCHED ACROSS BED. INFORMED PATIENT TO UNPLUG THE PUMP AND TAKE PUMP TO RESTROOM WITH HER. PT ASSISTED TO RESTROOM AT THIS TIME. NO DISTRESS NOTED. Harman SAINI RN
--- NOTE | 2019-09-09 22:02 | NUR ---
VANCOMYCIN COMPLETED AT THIS TIME. IV CONVERTED TO SALINE LOCK. NO DISTRESS NOTED AT THIS TIME. Harman SAINI RN
[2019-09-10 00:21] VITALS: BP 128/78
--- NOTE | 2019-09-10 00:23 | NUR ---
VSS. PT MEDICATED WITH SCHEDULED MOTRIN. PAIN 12/03. L SANTOSH SAINI
--- NOTE | 2019-09-10 03:30 | NUR ---
PT RESTING AT THIS TIME. NO DISTRESS NOTED. Harman SAINI RN
--- NOTE | 2019-09-10 04:20 | NUR ---
VSS. PT MEDICATED WITH MOTRIN. STATES THAT PAIN IS A 7/10. L YENY RN
[2019-09-10 06:09] LABS: RAPID PLASMA REAGIN Non Reactive (Non Reactive)
--- NOTE | 2019-09-10 06:40 | NUR ---
PT INTERMITTENTLY RESTING. STATES PAINIS A 3/10 AT THIS TIME. Harman SAINI, RN
--- NOTE | 2019-09-10 07:58 | NUR ---
PT AMBULATORY TO DESK REQUESTING TO LEAVE UNIT. PT INSTRUCTED THAT LONG SHE HAS PIV ACCESS SHE IS NOT ALLOWED OFF UNIT. DISCUSSED WITH PT CURRENT ORDERS FOR PIV ANTIBIOTICS AND NEED FOR CONTINUED DOSES, VERBALIZES UNDERSTANDING. PT INFORMED THAT PIV CAN BE D/C'D AND RESITED UPON RETURN TO UNIT FOR ANTIBIOTICS TO BE GIVEN. PT VERBALIZES AGREEMENT, REQUESTS PIV BE REMOVED AND RESITED. L WRIST PIV REMOVED, TIP INTACT. BANDAID PLACED. PT AMBULATORY OFF UNIT WITH SIGNIFICANT OTHER.
--- NOTE | 2019-09-10 08:36 | NUR ---
AMBULATORY BACK TO UNIT WITH SIGNIFICANT OTHER, NO LONGER TEARFUL. REQUESTS TO SHOWER, CHG SOAP PROVIDED AND INSTRUCTED ON USE, INSTRUCTED ON INCISIONAL CARE, VERBALIZES UNDERSTANDING AND DENIES QUESTION. CLEAN GOWN, TOWELS, AND PANTIES PROVIDED. VERBALIZES UNDERSTANDING OF CALL LIGHT USE IN BATHROOM, VERBALIZES UNDERSTANDING.
[2019-09-10 09:19] VITALS: BP 132/79
--- NOTE | 2019-09-10 09:19 | NUR ---
SHIFT ASSESSMENT COMPLETED PER FLOWSHEET. VSS. FUNDUS FIRM, MIDLINE AND U2 WITH SCANT RUBRA LOCHIA, NO CLOTS NOTED. C/O ABD AND INCISIONAL DISCOMFORT 12/03, MOTRIN AND PERCOCET PROVIDED PER ORDERS AND PT REQUEST. 20 G PIV STARTED TO DORSAL L FA, EXCELLENT BLOOD RETURN NOTED, SECURED WITH TEGADERM AND TAPE. LOWER TRANSVERSE ABD INCISION NOTED WITH REDNESS, REDDENED AREAS MARKED, WARMTH NOTED TO DORSAL SIDE OF INCISION. STERI STRIPS IN PLACE. INCISIONAL CARE DISCUSSED WITH PT, VERBALIZES UNDERSTANDING. 2+ RUE EDEMA NOTED. POC DISCUSSED WITH PT AND SIGNIFICANT OTHER, BOTH VERBALIZE UNDERSTANDING AND DENY QUESTIONS. BED IN LOW POSITION WITH SRUP X2. CALL LIGHT AND PHONE WITHIN REACH. CEREAL PROVIDED AND LIGHTS OFF PER REQUEST.
--- NOTE | 2019-09-10 10:04 | NUR ---
DR. STRICKLAND AT BEDSIDE, DISCUSSING POC WITH PT. PT BECOMES TEARFUL WHEN DR. STRICKLAND INFORMS HER THAT SHE WANTS TO KEEP HER OVERNIGHT D/T ERYTHEMA AND WARMTH FROM INCISION. DR. STRICKLAND EDUCATES PT ON POSSIBLE ADVERSE OUTCOMES WITH POSSIBILITY OF IF NOT TREATED APPROPRIATELY. PT VERBALIZES UNDERSTANDING, STATES THAT SHE WANTS TO SEE OTHER CHILDREN AND HER IN THE NICU AND "I'M JUST TIRED OF THIS PLACE, I'VE BEEN HERE FOR 3 DAYS AND HAVEN'T BEEN ABLE TO SLEEP." DR. STRICKLAND REINFORCES CARE PLAN AND PLANS, ORDERS REC'D AT THIS TIME. WILL CONTINUE TO MONITOR. LIGHTS OFF AND PT ENCOURAGED TO REST, VERBALIZES UNDERSTANDING.
--- NOTE | 2019-09-10 11:32 | NUR ---
DORSAL L FA PIV D/C'D WITH TIP INTACT PER ORDER AND PT REQUEST. TEARFUL AND ARGUING WITH SIGNIFICANT OTHER AT THIS TIME, STATES THAT SIGNIFICANT OTHER IS LEAVING TO GO HOME TO GET OTHER CHILD TONIGHT AND SHE DOESN'T WANT TO STAY BY HERSELF. REINFORCED IMPORTANCE OF GETTING TREATMENT ORDERED, VERBALIZES UNDERSTANDING STATES THAT SHE IS READY TO SEE AND GET HOME. AMBULATORY OFF UNIT WITH SIGNIFICANT OTHER TO "SMOKE CIGARETTE." STEADY GAIT NOTED.
--- NOTE | 2019-09-10 11:41 | NUR ---
AMBULATORY BACK TO ROOM. DENIES NEEDS. SIGNIFICANT OTHER NOT WITH PT AT THIS TIME.
--- NOTE | 2019-09-10 13:04 | NUR ---
VSS. FUNDUS FIRM, MIDLINE AND U3 WITH SCANT RUBRA LOCHIA, NO CLOTS NOTED. C/O DISCOMFORT 02/02, MOTRIN AND PERCOCET GIVEN PER PT REQUEST AND ORDER. PT CALM AND CONVERSING WITH SIGNIFICANT OTHER AT THIS TIME. REQUEST INFO ON GETTING [facility] SET UP IN NICU WITH , WILL CONTACT [facility] FOR INFO FOR PT. DENIES ADDITIONAL NEEDS. BED IN LOW POSITION WITH SRUP X2. CALL LIGHT AND PHONE WITHIN REACH. WILL CONTINUE TO MONITOR.
[2019-09-10 13:06] VITALS: BP 118/81
--- NOTE | 2019-09-10 13:39 | NUR ---
[facility] CONTACTED WILL FAX INFO TO GET CAMERA SET UP FOR PT. PT NOTIFIED. DENIES PAIN AND NEEDS, VERBALIZES APPRECIATION FOR NICU CONTACT. BED REMAINS IN LOW POSITION WITH SRUP X2. CALL LIGHT AND PHONE WITHIN REACH. WILL CONTINUE TO MNITOR.
--- NOTE | 2019-09-10 14:31 | NUR ---
PT AMBULATORY OFF UNIT WITH SIGNIFICANT OTHER. DENIES NEEDS AT THIS TIME. STEADY GAIT NOTED, CALM AND RELAXED AT THIS TIME.
--- NOTE | 2019-09-10 16:00 | NUR ---
KEFLEX GIVEN, EDUCATED ON MED, VERBALIZES UNDERSTANDING AND DENIES QUESTIONS. BREAST PUMP PROVIDED PER PT REQUEST AND EDUCATED ON USE, DEMONSTRATES UNDERSTANDING. BED IN LOW POSITION WITH SRUP X2. CALL LIGHT AND PHONE WITHIN REACH. WILL CONTINUE TO MONITOR.
--- NOTE | 2019-09-10 17:14 | NUR ---
RN TO BEDSIDE. PT PACING IN ROOM, TEARFUL AND SCRATCHING BILATERAL UPPER EXTREMITIES. STATES THAT SHE IS NERVOUS AND ANXIOUS AND NEEDS CIGARETTE. STATES THAT SIGNIFICANT OTHER WILL BRING HER SOME WHEN HE COMES BACK. REFUSES MOTRIN AT THIS TIME. WILL GIVE WHEN PT REQUEST. REPORTS THAT SHE WAS ABLE TO GET CAMERA SET UP ON FROM NICU.
--- NOTE | 2019-09-10 18:08 | NUR ---
SIGNIFICANT OTHER BACK TO BEDSIDE. PT C/O ABD AND INCISIONAL DISCOMFORT, MEDICATED PER EMAR. CALM AND RELAXED AT THIS TIME. QUESTIONS REGARDING DRUG USE ANSWERED. 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 DENIES ADDITIONAL QUESTIONS. PT WATCHING TV. ICE WATER PROVIDED. DENIES ADDITIONAL NEEDS. BED IN LOW POSITION WITH SRUP X2. CALL LIGHT AND PHONE WITHIN REACH. WILL CONTINUE TO MONITOR.
--- NOTE | 2019-09-10 19:26 | NUR ---
ROUNDS MADE AT THIS TIME AND PATIENT OFF THE UNIT. Harman SAINI RN
--- NOTE | 2019-09-10 19:35 | NUR ---
PT BACK ON THE UNIT. Harman SAINI RN
[2019-09-10 19:50] VITALS: BP 119/77
--- NOTE | 2019-09-10 19:50 | NUR ---
PT REC'D IN BED AT THIS TIME. WHEN ASKED HOW SHE WAS DOING, PT STATES THAT SHE IS DOING GOOD. PT IS SMILING AND COOPERATIVE. WHEN ASKED ABOUT PAIN PT FROWNS AND STATES THAT SHE IS HURTING REALLY BAD. SHE STATES THAT THE INCISION IS BURNING. REINFORCED EDUCATION REGARDING EXCESSIVE MIVING AND PICKING WITH INCISION SITE. PT NOW STATES THAT SHE IS FINE LONG SHE DOES NOT MOVE. PT RATING A PAIN OF 5/10 WITH MOVEMENT. ABDOMINAL INCISION RED AND WARM TO THE TOUCH. PT AFEBRILE AT THIS TIME. RUE WITH BRUISING AND SWELLING NOTED. SEE FLOWSHEET FOR ADDITIONAL CHARTING. Harman SAINI RN
--- NOTE | 2019-09-10 20:15 | NUR ---
PT UP AND AMBULATING TO GET WATER AND A SANDWICH NO DISTRESS NOTED. Harman SAINI RN
--- NOTE | 2019-09-10 20:57 | NUR ---
PT OFF UNIT AT THIS TIME. Harman SAINI RN
--- NOTE | 2019-09-10 21:05 | NUR ---
PT AT DESK AND ASKED ABOUT RECEIVING THE DEPO PROVERA SHOT SINCE SHE DID NOT RECEIVE A TUBAL. PT INFORMED THAT A NOTE WOULD BE LEFT FOR DR. STRICKLAND. UNDERSTANDING VERBALIZED. Harman SAINI RN
--- NOTE | 2019-09-10 21:17 | NUR ---
PT GIVEN SCHEDULED 2100 MEDICTAIONS. NO DISTRESS NOTED. Harman SAINI RN
--- NOTE | 2019-09-10 22:12 | NUR ---
PT MEDICATED WITH PERCOCET 5. PREVIOUSLY MEDICATED WITH SCHEDULED IBUPROFEN AND AMBIEN FOR SLEEP. WILL CONTINUE TO MONITOR. Harman SAINI RN
--- NOTE | 2019-09-10 23:45 | NUR ---
PT REC'D IN BED. RESTING AT THIST RENE. STATES THAT PAIN IS A 3. WILL CONTINUE TO MONITOR. Harman SAINI RN
[2019-09-11 05:52] VITALS: BP 128/67; Ht 162.6 cm; Wt 145.6 kg
--- NOTE | 2019-09-11 08:35 | NUR ---
PT AMBULATES OFF UNIT AT THIS TIME.
--- NOTE | 2019-09-11 08:45 | NUR ---
pt ambulatory in hallway, to pt refrigerator area by self, states "i just need a coke to drink". pt asking when doctors will round, states "i really need to go home". explained to pt md should round this am, but not sure of time. pt states "ok".
[2019-09-11 08:50] VITALS: BP 127/69
--- NOTE | 2019-09-11 09:00 | NUR ---
pt is sitting up in the bed, crying out and sobbing, stating "when is dr. esteves coming by to see me? i need to go home, and see my babies". medication adm record reviewed with pt, see emar for all meds adm by this rn. low transverse incision noted to have steristrips intact, no redness or drainage noted from incision site. abdomen palpates soft, fundus firm, u/1, scant rubra lochia, no clots. pt denies heavy bleeding or passing clots. pt has cola to drink, denies all other needs. pt smells of cigarette smoke, pt has been ambulatory in [facility], states "i had to go out and smoke, i can't take being in this hospital anymore". explained to pt this is a non smoking facility, and dangers of smoking/smoking post operative risks. pt states "i need to go home, can you find out when i'm going?". srup x2, call light and phone within reach. pt denies all other needs.
--- NOTE | 2019-09-11 09:42 | NUR ---
le: meds adm by this rn, see emar for all meds adm by this rn. pt denies all needs at this time. sup x2, call light and phone within reach.
--- NOTE | 2019-09-11 12:00 | NUR ---
dr. esteves on unit, to room to speak with pt. verbal order received to discharge pt home.
--- NOTE | 2019-09-11 12:30 | NUR ---
discharge instructions explained to pt, pt denies all questions. prescription for percocet given to pt, along with pp instruction sheet, and emergency information sheet. pt has no iv lines/monitors to remove. pt has requested depo provera. depo provera 150 mg given to left thigh. pt saman well. see emar for med adm. pt denies all other needs/questions. pt then off unit in stable condition, with her mother, ambulatory to private car.
[2019-09-11] MEDS ORDERED: PERCOCET 5-3251 TAB PO (12:38)
--- NOTE | 2019-09-11 20:52 | MORECARE ---
CASE MANAGEMENT DISCHARGE SUMMARY PATIENT: NINA SCHMITZ UNIT: [id number] ADM DATE: 09/07/19 AGE: 29 : 86 SEX: F ROOM/BED: D.1273 AUTHOR: KEDAR PRUETT PHYSICIAN: REFERRING PHYSICIAN: ALINA STRICKLAND DO DATE OF SERVICE: 09/11/19 Discharge Plan Patient Name: NINA SCHMITZ Facility: [facility]:Louise : 1990 Planned Disposition: Anticipated Discharge Date: Discharge Date: 09/11/2019 Expected LOS: Initial Reviewer: [email or web address] Initial Review Date: 09/08/2019 Generated: 09/11/19 9:51 pm DCP- Discharge Planning Updated by [email or web address]: Theresa Gray on 09/08/19 9:[address] Patient Name: NINA SCHMITZ Admission Status: Elective Accout number: [id number] Admission Date: 09-07-2019 : 1990 Admission Diagnosis: Attending: JOIE Current LOS: 1 Anticipated DC Date: Planned Disposition: Primary Insurance: [employer] MA[employer]GED MEDICAID Discharge Planning Comments: DC PLAN: MOB HOME WITH WHEN DC'D FROM [facility], B will transport home. ADDRESS: [address] [place] [address], [place], [address] PHONE NUMBER: [phone] DC NEEDS: NONE TRANSPORTATION: YES WIC: [place] GO[place]- [place] INFORMATION GIVEN [place]: HAS NOT APPLIED YET, I WILL CONTACT AMINA WITH OUR [facility] OFFICE CAR SEAT: YES FEEDING PLAN: FORMULA BABY NAME: JOHN ROGERSRBROUGH FOB: [place] ERNEST[place] LO MOB: NINA SCHMITZ TEAM PHYSICIAN: DR. BERNARDO CARE: YES/DR STRICKLAND SUPPLIES: CLOTHES, BOTTLES, CRIB, DIAPERS, CARSEAT. DRUG, ALCOHOL OR TOBACCO USE IN THE HOME: TOBACCO USE, FOB AND MOB, STATES THEY SMOKE OUTSIDE. CM MET WITH MOB REGARDING DC PLANNING/NEEDS. MOB STATES PLANS TO DC TO HOME WHERE SHE LIVES WITH FOB, ONE OTHER ADULT AND HER 1 YEAR OLD CHILD. IS IN THE [facility]PITAL AT [facility] AT THIS TIME. MOB STATES SHE HAS 1 OTHER CHILD THAT DOES NOT LIVE WITH HER, STATES SHE IS 12Y/O AND LIVES WITH HER MOM. DENIES SUBSTANCE USE OR ABUSE IN THE HOME. WHEN ASKED ABOUT HER CURRENT TOX SCREEN SHE STATES SHE USED METH 3 TO 4 DAYS AGO, HAS USED ON AND OFF FOR SEVERAL YEARS. FOB WILL TRANSPORT HER AND TO DOCTOR APPOINTMENTS AND WILL HELP CARE FOR THE . THE HOME ENVIRONMENT IS A SAFE PLACE ACCORDING TO PATIENT AND IT IS STATED THAT THEY HAVE ALL SUPPLIES FOR THE INFANT. I SPOKE WITH THE NURSE AND [employer] IS TO COME ASSES TODAY OR TOMORROW. RN OR DHS CAN CONTACT ME AT [phone] AND I WILL ASSIST NEEDED. I GAVE PATIENT INFORMATION FOR RESOURCES TO OBTAIN BABY SUPPLIES AND OTHER INFORMATION IF NEEDED. I ALSO GAVE INFORMATION ON SUBSTANCE ABUSE FACILITIES/CLINICS. CM WILL ASSIST NEEDED. ? Clay Hoister: Theresa WESLEY export: 09/08/19 9:07 a Patient Name: NINA SCHMITZ Page [id number] at 205 All edits/amendments must be made on the electronic document DICTATION DATE: 09/11/192050 REFINERY OPERATOR REFORMING UNIT: RICKY 09/11/192050 RPT#: [id number] DC DATE:09/11/19 STATUS: DIS IN [facility] [address] [place] [address] END OF REPORT
[2019-09-12 11:09] LABS: UDSC - AMPHET Positive (Cutoff=1000); UDSC - BARB Negative ng/mL (Cutoff=300); UDSC - BENZO Negative ng/mL (Cutoff=300); UDSC - COC Negative ng/mL (Cutoff=300); UDSC - METH Negative ng/mL (Cutoff=300); UDSC - OPIATES Negative ng/mL (Cutoff=300); UDSC - PCP Negative ng/mL (Cutoff=25); UDSC - PROPOXY Negative ng/mL (Cutoff=300); UDSC - THC Negative ng/mL (Cutoff=50)
== END 2019-09-11 15:00 | disposition home or self-care (01) | DRG 786 ==
LOC: D.LD 01:19
PROVIDERS: ADMIT Student in an Organized Health Care Education/Training Program; ATTEND Student in an Organized Health Care Education/Training Program
PROC: 10D00Z1 Extraction of Products of Conception, Low, Open Approach (ICD-10-PCS; principal; 2019-09-07 01:50)
DX: O44.13 Complete placenta previa with hemorrhage, third trimester (principal); O87.1 Deep phlebothrombosis in the puerperium; O99.324 Drug use complicating childbirth; I82.621 Acute embolism and thrombosis of deep veins of right upper extremity; Z3A.34 34 weeks gestation of pregnancy; Z37.0 Single live birth; F15.90 Other stimulant use, unspecified, uncomplicated; O45.93 Premature separation of placenta, unspecified, third trimester; O99.02 Anemia complicating childbirth; O90.89 Other complications of the puerperium, not elsewhere classified; I49.1 Atrial premature depolarization; O72.3 Postpartum coagulation defects; D69.6 Thrombocytopenia, unspecified

== ENCOUNTER 2019-12-18 05:10 | Day surgery (SDC) | payer MEDICAID ==
[2019-12-16 11:37] LABS: HEMATOCRIT 38.3 % (36.0-48.0); HEMOGLOBIN 12.7 g/dL (12-16); LYMPHOCYTES 36.9 % (15-50); MCHC 33.2 g/dL (31.0-37.0); MCV 90.3 fL (80.0-100.0); MEAN PLATELET VOLUME 9.4 fL (7.4-10.4); NEUTROPHILS 55.9 % (40-80); PLATELET COUNT 293 10x3/uL (130-400); RBC 4.24 10x6/uL (4.00-5.40); WBC 8.3 10x3/uL (4.8-10.8)
[~2019-12-18] VITALS: Ht 162.6 cm; Wt 59.0 kg
--- NOTE | ~2019-12-18 | OP ---
PATIENT NAME: NINA SCHMITZ MEDICAL RECORD: [id number] :[birth year] LOCATION:D.OPS ADMISSION DATE: SURGEON: ALINA STRICKLAND DO DATE OF OPERATION: 12/18/2019 PREOPERATIVE DIAGNOSIS: Multiparity, desire for permanent sterilization. POSTOPERATIVE DIAGNOSIS: Multiparity, desire for permanent sterilization. PRIMARY SURGEON: Alina Strickland DO ANESTHESIA: General ET tube. PROCEDURE: Laparoscopic bilateral tubal ligation with Falope rings. FINDINGS: Normal appearing retroverted uterus with mild adhesions at the bladder line. Normal appearing bilateral ovaries and bilateral fallopian tubes. SPECIMENS: None. ESTIMATED BLOOD LOSS: 2 cc. IV FLUIDS: 1300 cc. COMPLICATIONS: None. CONDITION: Stable. PROCEDURE IN DETAIL: The risks, benefits, alternatives and indications of the procedure were discussed with the patient. She voiced understanding of the procedure and signed a consent. She expressed desire for permanent sterility and understands that this is a nonreversible procedure. She was taken to the OR where general anesthesia was administered and found to be adequate. She was placed in the dorsal lithotomy position. She was prepped and draped in the normal sterile fashion. A ring forceps with sponge stick was placed into the vagina. Gloves were changed and attention was then turned to the abdomen. The abdomen was elevated. Marcaine was placed at the umbilical fold and a 5-mm port was placed with the laparoscope visualization. The pneumoperitoneum was achieved to 15 mmHg. An 8 mm port was placed under direct laparoscopic visualization in the left lower quadrant 2 cm superior and 2 cm medial to the left ASIS with good hemostasis noted. The uterus was elevated out of the pelvis. The patient was placed in Trendelenburg position and the bowel was displaced with the blunt probe. The left fallopian tube was grasped with the Falope ring applicator and the Falope ring was placed without difficulty. Good blanching was noted at the fallopian tube site. The right tube was elevated and grasped with the Falope ring applicator. The Falope ring was attempted to be placed at that time; however, the blanching was not noted to be adequate and so a second Falope ring was placed with good blanching noted at the Falope ring site. Hemostasis was adequate. The patient was taken out of Trendelenburg position and the ports were removed from the abdomen. The pneumoperitoneum was released. The port sites were closed with 3-0 Monocryl and Dermabond covering. All needle, lap, sponge, and instrument counts were correct times 2. The sponge stick was removed from the vagina and again, all needle, lap, sponge, and instrument counts were correct times 2. The patient tolerated OPERATIVE REPORT [id number] NINA SCHMITZ N the procedure well. She was awakened and taken to the recovery room in stable condition. TRANSINT:[id number] Voice Confirmation ID: [id number] DOCUMENT ID: [id number] ALINA STRICKLAND DO CC: [id number] DICTATION DATE: 12/18/19 0836 DB2 SYSTEMS PROGRAMMER: 12/18/19 1609 [facility] [place] 12/18/19 [facility] [address] [place] [address]
[~2019-12-18 05:10] MED LIST: CELEXA20 MG PO; PERCOCET 5-3251 TAB PO
[2019-12-18 06:09] VITALS: BP 100/58; Ht 162.6 cm; Wt 59.0 kg
[2019-12-18 06:18] LABS: HCG URINE NEGATIVE (NEGATIVE)
== END 2019-12-18 10:10 | disposition home or self-care (01) ==
LOC: D.OPS 05:10 → D.PAN 07:00 → D.OPS 08:15
PROVIDERS: ATTEND Student in an Organized Health Care Education/Training Program
DX: Z64.1 Problems related to multiparity (principal); Z30.2 Encounter for sterilization; F32.9 Major depressive disorder, single episode, unspecified